=== PATIENT | female | born 1995 | race Caucasian/White ===

== ENCOUNTER 2020-10-10 11:41 | Emergency (ER) | payer OTHER ==
[~2020-10-10 11:41] MED LIST: COLACE100 MG PO; FEOSOL325 MG PO; PRENATAL FORMU1 EACH PO; VALTREX1000 MG PO
[2020-10-10 12:34] LABS: ALBUMIN 3.6 g/dL (3.4-5.0); BILIRUBIN - TOTAL 0.3 mg/dL (0.2-1.0); BUN/CREAT RATIO (CALC) 12.2 RATIO; CREATININE 0.82 mg/dL (0.51-0.95); GLOBULIN (CALCULATION) 3.8 g/dL; POTASSIUM 4.2 mmol/L (3.5-5.1); TOTAL PROTEIN 7.4 g/dL (6.4-8.2)
[2020-10-10 13:09] LABS: EOSINOPHIL 2.8 % (0-5); HCT 39.7 % (37.0-47.0); HGB 13.1 g/dl (12.5-16.0); LYMPHOCYTE 36.6 % (15-48); MCH 28.8 pg (25.0-31.0); MCV 87.3 fL (78.0-100.0); MPV 10.4 fL (6.0-9.5); NEUTROPHIL 49.4 % (41-80); NRBC 0; PLT 287 K/uL (150-400); RBC 4.55 M/uL (4.20-5.40); RDW 12.7 % (11.5-14.0); WBC 8.2 K/uL (4.0-10.5)
== END 2020-10-10 14:09 | disposition home or self-care (01) ==
LOC: FER 11:41
PROVIDERS: Emergency Medicine
DX: R07.89 Other chest pain (principal)
CPT/HCPCS: 36415; 71045; 71275; 80053; 82150; 83690; 84484; 85025; 85379; 93005; Q9967